=== PATIENT | male | born 1965 | race Caucasian/White ===

== ENCOUNTER 2024-09-02 08:48 | Emergency (ER) | payer BC, SELFPAY ==
[2024-09-02] VITALS (8 sets, daily range): BP systolic 146–178; BP diastolic 84–98; PULSE 72–149; RESP 18–97; TEMP 36.4–36.7; O2SAT 95–98; BMI 42.0
--- NOTE | 2024-09-02 09:25 | XR_ITS ---
Examination: AP chest single view Technique one AP portable upright chest single view Exam date and time: September 02, 2024 0941 hours INDICATIONS: Cardiac palpitations today. FINDINGS: Mild prominence left ventricle No pneumonia or pulmonary edema The osseous structures are intact IMPRESSION: No active disease
--- NOTE | 2024-09-02 09:26 | PD.EDRME ---
Rapid Medical Screening Exam RME Arrival date/time: 09/02/24 08:48 59-year-old male here with complaints of palpitations, dizziness fatigue x 1 morning. I have greeted and performed a focused initial assessment of this patient. Initial appropriate labs ordered at this time. A comprehensive ED assessment and evaluation of the patient and analysis of all test and completion of medical decision making process will be conducted by additional ED provider. Patient in A-fib RVR Chief Complaint: Dizziness Time Seen by Provider: 09/02/24 09:01 Vital signs: Vital Signs Temperature 97.6 F 09/02/24 09:03 Pulse Rate 99 09/02/24 09:03 Respiratory Rate 18 09/02/24 09:03 Blood Pressure 178/92 H 09/02/24 09:03 Pulse Oximetry (%) 96 09/02/24 09:03 Oxygen Delivery Method Room Air 09/02/24 09:03
[2024-09-02 10:17] LABS: Basophils # (Auto) 0.1 Thou/mm3 (0.0-0.2); Basophils % (Auto) 1 % (0-2.5); Eosinophils # (Auto) 0.1 Thou/mm3 (0.0-0.5); Eosinophils % (Auto) 2 % (0-10); Hematocrit 46.1 % (41.0-53.0); Hemoglobin 16.1 g/dL (13.5-16.0); Immature Granulocytes % (Auto) 0 % (0-0); Immature Granulocytes Auto 0.03 Thou/mm3 (0.00-0.00); Lymphocytes # (Auto) 2.7 Thou/mm3 (1.0-4.8); Lymphocytes % (Auto) 40 % (10-50); Mean Corpuscular HGB Conc 34.9 g/dl (31.0-37.0); Mean Corpuscular Hemoglobin 30.8 pg (25.0-35.0); Mean Corpuscular Volume 88 fL (80-100); Monocytes # (Auto) 0.7 Thou/mm3 (0.0-0.8); Monocytes % (Auto) 11 % (0-12); Neutrophils # (Auto) 3.1 Thou/mm3 (1.8-7.7); Neutrophils % (Auto) 46 % (37-80); Nucleated Red Blood Cell % 0 /100 WBC (0); Platelet Count 284 Thou/mm3 (140-440); RDW Standard Deviation 43.2 fL (35.1-43.9); Red Blood Count 5.22 Miln/mm3 (4.50-5.90); White Blood Count 6.8 Thou/mm3 (3.8-10.6)
--- NOTE | 2024-09-02 10:28 | EDNOTE_ITS ---
ED General RME/HPI General Chief complaint: Dizziness Stated complaint: DIZZY, PALPITATIONS, SOB Time Seen by Provider: 09/02/24 09:01 Arrival date/time: 09/02/24 08:48 RME / HPI RME / HPI narrative: 09/02/24 08:48 59-year-old male here with complaints of palpitations, dizziness fatigue x 1 morning. I have greeted and performed a focused initial assessment of this patient. Initial appropriate labs ordered at this time. A comprehensive ED assessment and evaluation of the patient and analysis of all test and completion of medical decision making process will be conducted by additional ED provider. Patient in A-fib RVR DR. MARTINEZ MAIN ED EVALUATION 59 y/o male with H/o carpal tunnel BL and hypertension presents to ED c/o increased heart rate and pressure x 0600 today. Patient reports symptoms resolve after getting up. Patient states he recently moved and has not been established with a PCP. Patient has been previously prescribed LASIX, metoprolol, and Amlodipine 4-5 years when experiencing similar symptoms. Patient states uncle from [place] during his early 60s. Patient admits to occasional marijuana drug use for pain management due to degenerative joint disease of the spine. No other modifying factors reported. No other concerns or complaints expressed at this time. Related Data Previous Rx's ?Medication ?Instructions ?Recorded amlodipine 10 mg tablet 10 mg PO QDAY #20 tabs 09/02 furosemide 20 mg tablet (Lasix) 20 mg PO QAM #20 tabs 09/02/24 metoprolol succinate 50 mg 50 mg PO QDAY #20 tabs 08/24 tablet,extended release 24 hr Allergies Allergy/AdvReac Type Severity Reaction Status Date / Time No Known Allergies Allergy Verified 09/02/24 08:51 Review of Systems Review of Systems Systems Reviewed: All systems reviewed, normal except as documented Narrative Review of Systems: Gen: No fever, no chills, no weight loss EYES: No discharge, no visual changes, no pain HEENT: No ear pain, no congestion, no sore throat PULM: No shortness of breath, no cough, no congestion CV: No chest pain, no dyspnea on exertion, no palpitations, + increased heart rate, Increased blood pressure GI: No nausea, no vomiting, no diarrhea, no pain, no constipation : No frequency, no urgency,? no dysuria Musc/skel: No joint pain, no back pain Skin: No rash? Psyc: No hallucinations, no depression Heme/Lymph: No easy bleeding or bruising tendencies Neuro: No weakness, no headache Past Medical History Past Medical History CARDIAC: Positive Hypertension RESPIRATORY: Negative Chronic Obstructive Pulmonary Disease (COPD) GENITOURINARY: Negative Renal Disease ENDOCRINE: Negative Diabetes Mellitus Type 1 or Diabetes Mellitus Type 2 Social History SMOKING STATUS: Never smoker ED Exam Narrative Physical exam: GEN. APPEARANCE: The patient is alert awake oriented X-3 in no distress, lying down comfortably, does not look ill/toxic. Patient has good eye contact. Patient is cooperative. VITALS: All vitals were reviewed and and are normal according to my interpretation. HEENT: Normocephalic, atraumatic. Pupils are equal and reactive. Oral mucosa is moist. Patent Nares NECK: Supple, nontender, no thyromegaly, no meningismus, no JVD, no step offs CHEST: Symmetrical, atraumatic, and with equal expansion , Nontender on palpation no deformity and no crepitus. CARDIOVASCULAR: + tachycardia, no murmur or gallop rub or extra beats. LUNGS: Clear to auscultation bilaterally with symmetrical chest rise. No laboring tachypnea or wheezing. No intercostal subcostal retraction. No rales and no rhonchi. ABDOMEN: Soft, nontender to palpation, no guarding or rebound tenderness. There are no abnormal masses palpated. Active and normal bowel sounds. + Obese EXTREMITIES: Nontender. + Trace edema to BL lower extremities. No cyanosis. Patient is able to move all 4 extremities well, with full ROM and good CSM. SKIN: Warm and dry, no jaundice or rashes noted. MUSCULOSKELETAL: No lubar or midline bony tenderness. There is no CVA tenderness. No paraspinal muscle spasm or tenderness. NEURO: Patient is FROST x 4, Cranial nerves II through XII grossly intact. There is no focal neurologic deficits noted. GCS is 15, PNS and SHEEP CLIPPER appear grossly intact. PSYCHIATRIC: Patient is in normal mood and affect, cooperative, no SI or HI or hallucinations. Course Quality Measures none Orders Category Date Time Status Cutting Department Supervisor NOW Care 09/02/24 11:23 Active Cutting Department Supervisor STAT Care 09/02/24 09:25 Active Continuous Pulse Oximetry ONCE Care 09/02/24 09:25 Active EKG (ED ONLY) *Do not use* NOW Care 09/02/24 09:25 Completed Insert IV NOW Care 09/02/24 11:24 Active Insert IV STAT Care 09/02/24 09:25 Active EKG (ED Only) Stat Exams 09/02/24 09:25 Ordered XR chest 1V portable Stat Exams 09/02/24 09:25 Completed B-Type Natriuretic Peptide Stat Lab 09/02/24 10:00 Completed CBC Stat Lab 09/02/24 10:00 Completed CBC Stat Lab 09/02/24 11:38 Completed Comprehensive Metabolic Panel Stat Lab 09/02/24 10:00 Completed Lipase Stat Lab 09/02/24 10:00 Completed Magnesium Stat Lab 09/02/24 10:00 Completed Magnesium Stat Lab 09/02/24 11:38 Completed Partial Thromboplastin Time Stat Lab 09/02/24 10:00 Completed Prothrombin Time with INR Stat Lab 09/02/24 10:00 Completed Troponin I Stat Lab 09/02/24 10:00 Completed Troponin I Stat Lab 09/02/24 11:38 Completed Urinalysis Stat Lab 09/02/24 11:30 Completed Diltiazem Inj [Cardizem Inj] Med 09/02/24 11:22 Discontinued 20 mg IV X1 ONE Oxygen Delivery NOW RT 09/02/24 11:24 Active Reevaluation(s) Reevaluation #1: We reviewed all the results, analysis, and treatment plans. Patient is amenable to discharge. Strict return precautions were outlined. Patient was discharged in stable condition. Time: 14:30 Vital Signs Vital signs: Vital Signs Temperature 97.6 F 09/02/24 09:03 Pulse Rate 99 09/02/24 09:03 Respiratory Rate 18 09/02/24 09:03 Blood Pressure 178/92 H 09/02/24 09:03 Pulse Oximetry (%) 96 09/02/24 09:03 Oxygen Delivery Method Room Air 09/02/24 09:03 Pulse ox is 96% on room air which is adequate. [facility] Patient data External records reviewed:: [facility] previous records (No records available per EHR.) Clinical information provided by:: patient Social determinants that could affect healthcare access:: alcohol use (1 6-pack per week) Patient has the following chronic illnesses:: Hypertension How is presenting disease/condition affected by chronic disease/condition?: e xacerbated by Evaluation data The following diagnostics were reviewed and interpreted by me:: radiology exam(s) and EKG tracing(s) (Atrial fibrillation with RVR, rate 155, QT/QTc 288ms/375ms ) Lab and/or radiology exams considered but not ordered:: None Interpretation Summary: Patient: KAT BAUTISTA. Record#: [id number] Birthdate: 1965 Age/Sex: 59 / M [facility] Att[facility]: Ordering Physician: [facility] Date of Service: 09/02/24 Procedure(s): XR chest 1V portable Accession Number(s): [id number] cc: Dannie Cox MD; Yang HaywoodINTER[facility]ENTERConcepción Kimble~ Examination: AP chest single view Technique one AP portable upright chest single view Exam date and time: September 02, 2024 0941 hours INDICATIONS: Cardiac palpitations today. FINDINGS: Mild prominence left ventricle No pneumonia or pulmonary edema The osseous structures are intact IMPRESSION: No active disease Dictated By: Dannie Cox MD Signed By: <Electronically signed by Dannie Cox MD in [place]> 09/02/24 1001 Medications Medications considered but not ordered:: None Medication administrations:: Medication Administration History Discontinued Medications Diltiazem HCl (Diltiazem Inj 5 Mg/Ml Vial 5 Ml) 20 mg IV X1 ONE Stop: 09/02/24 11:23 Last Admin: 09/02/24 11:49 Dose: 20 mg Documented By: EH See above if any. Consultations Consultation(s) initiated? (list below): No Diagnosis Differential Diagnosis ED Complaint MDM: atrial flutter vs atrial tachycardia vs atrial fibrillation Most likely diagnosis given after review of the tests above:: Paroxysmal atrial fibrillation, new onset Admission Indicated Admission indicated?: not indicated Explain why admission is indicated or not indicated:: AFib resolved while in the ED. Does not meed admission criteria Admission Request Was there a request for admission?: No Disposition Plan Disposition Plan: Discharge Discharge Attestation Discharge Attestation: The patient and all family members were given an opportunity to ask questions and understood the discharge instructions. Discharge instructions specifically effects, indications for sooner follow up or return to the emergency department, and the expected course of current diagnosis. Patient condition: Stable Medical Decision Making MDM Narrative MDM Narrative: Ysabel Langford, am scribing for and in the presence of Dr. Vickey Martinez. 59 y/o male with H/o carpal tunnel BL and hypertension presents to ED c/o increased heart rate and pressure x 0600 today. Physical exam findings show tachycardic heart rate, but no murmur, abdomen consistent with obesity, and trace edema of the BL lower extremities. Chest x-ray performed in ED shows mild prominence left ventricle, no pneumonia or pulmonary edema with osseous structures intact. EKG performed in office as interpreted by me shows: AFIB w/ rapid ventricular rate of 155 BPM, QRS 99 ms, QT/QTC 288/375 ms, no acute changes. Differential diagnosis includes but is not limited to: atrial flutter vs atrial tachycardia vs atrial fibrillation. Based on exam findings, testing, and patient's SxS, the diagnosis at this time is consistent with paroxysmal atrial fibrillation new onset. Advised patient to attempt walking 10,000 steps per day. While in the ED, patient was given Diltiazem and atrial fibrillation resolved. Patient was not given Lovenox although was a consideration given hx of atrial fibrillation. Patient reports he has yet to establish a sales and service technician in this area since moving and has not been able to refill his home medications which include Lasix, Amlodipine, and Metropolol. Will send the patient home with a prescription of his home medications and advised he follow up PCP for referral to a sales and service technician. Differential Diagnosis Differential Diagnosis: atrial flutter vs atrial tachycardia vs atrial fibrillation Lab Data 09/02/24 11:38 09/02/24 10:00 Labs: Lab Results 09/02/24 09/02/24 09/02/24 Range/Units 10:00 11:30 11:38 WBC 6.8 7.5 (3.8-10.6) Thou/mm3 RBC 5.22 5.27 (4.50-5.90) Miln/mm3 Hgb 16.1 H 16.3 H (13.5-16.0) g/dL Hct 46.1 46.5 (41.0-53.0) % MCV 88 88 (80-100) fL MCH 30.8 30.9 (25.0-35.0) pg MCHC 34.9 35.1 (31.0-37.0) g/dl RDW Std Deviation 43.2 43.6 (35.1-43.9) fL Plt Count 284 277 (140-440) Thou/mm3 Neut % (Auto) 46 49 (37-80) % Lymph % (Auto) 40 37 (10-50) % Barren % (Auto) 11 11 (0-12) % Eos % (Auto) 2 2 (0-10) % Baso % (Auto) 1 1 (0-2.5) % Neut # (Auto) 3.1 3.7 (1.8-7.7) Thou/mm3 Lymph # (Auto) 2.7 2.8 (1.0-4.8) Thou/mm3 Barren # (Auto) 0.7 0.8 (0.0-0.8) Thou/mm3 Eos # (Auto) 0.1 0.1 (0.0-0.5) Thou/mm3 Baso # (Auto) 0.1 0.1 (0.0-0.2) Thou/mm3 Immature Gran # (Auto) 0.03 H 0.02 H (0.00-0.00) Thou/mm3 Absolute Nucleated RBC 0.00 0.00 (0.00-0.00) Thou/mm3 Immature Gran % 0 0 (0-0) % Nucleated RBC % 0 0 (0) /100 WBC PT 10.7 (9.0-12.2) Seconds INR 1.0 (0.9-1.3) APTT 28.5 (22.0-36.0) Seconds Sodium 140 (136-145) mMol/L Potassium 4.0 (3.4-5.1) mMol/L Chloride 104 (98-107) mMol/L Carbon Dioxide 25.6 (20.0-31.0) mMol/L Anion Gap 10 (7-16) BUN 10 (9-23) mg/dL Creatinine 0.9 (0.6-1.3) mg/dL Estim Creat Clear Calc 131.7 (>60) mL/min eGFR > 60 (60 - ) See Note BUN/Creatinine Ratio 11 L (12-20) Ratio Glucose 125 H (74-106) mg/dL Calculated Osmolality 279 (275-295) Calcium 9.6 (8.3-10.6) mg/dL Corrected Calcium 9.6 (8.5-10.1) mg/dL Magnesium 1.6 1.6 (1.6-2.6) mg/dL Total Bilirubin 0.3 (0.3-1.2) mg/dL AST 54 H (0-34) U/L ALT 56 H (10-49) U/L Alkaline Phosphatase 70 (46-116) U/L Troponin I 0.024 0.022 (0.0-0.045) ng/mL B-Natriuretic Peptide 20 (0-100) pg/mL Total Protein 7.4 (5.7-8.2) gm/dL Albumin 4.7 (3.5-5.0) gm/dL Globulin 2.7 (2.3-3.5) gm/dL Albumin/Globulin Ratio 1.7 (1.2-2.2) Lipase 38 (12-53) U/L Ur Collection Type Clean Catch Urine Color Lt-Yellow (Lt Yel-Yel) Urine Clarity Clear (Clear/Hazy) Urine pH 7.0 (5.0-7.0) Ur Specific [place] 1.007 (1.001-1.035) Urine Protein Trace (Neg - Trace) Urine Glucose (UA) Negative (Negative) Urine Ketones Negative (Negative) Urine Blood Negative (Negative) Urine Nitrite Negative (Negative) Urine Bilirubin Negative (Negative) Urine Urobilinogen (Auto) Negative (0.0-1.0) mg/dL Ur Leukocyte Esterase Negative (Negative) Urine RBC < 1 (0-3) /hpf Urine WBC 1 (0-5) /hpf Ur Squamous Epith Cells 0 (0-5) /hpf Urine Bacteria None (None) Discharge Plan Plan Patient Disposition: HOME (Self Care) Prescriptions/Referrals Prescriptions/Med Rec: New furosemide [Lasix] 20 mg tablet 20 mg PO QAM Qty: 20 0RF amlodipine 10 mg tablet 10 mg PO QDAY Qty: 20 0RF metoprolol succinate 50 mg tablet extended release 24 hr 50 mg PO QDAY Qty: 20 0RF Referrals: No Primary/Family,Physician [Primary Care Provider] - In 1 week Problem List Clinical Impression: Paroxysmal atrial fibrillation, Hypertension Patient/Caregiver Discharge Instructions Education Materials: ED Atrial Fibrillation, ED Hypertension, Established Additional Instructions: Follow up with your sales and service technician for further evaluation and management of atrial fibrillation. Return if you develop any new or worsening symptoms. Continue your home medications: Lasix, Amlodipine, Metropolol. Print Language: Upper Sorbian Stand Alone Forms: Jayne Award Info., Patient Portal Info Letter
[2024-09-02 10:30] LABS: Partial Thromboplastin Time 28.5 Seconds (22.0-36.0); Prothrombin Time 10.7 Seconds (9.0-12.2)
[2024-09-02 10:34] LABS: B-Type Natriuretic Peptide 20 pg/mL (0-100)
[2024-09-02 10:35] LABS: Alanine Aminotransferase 56 U/L (10-49); Albumin, Serum 4.7 gm/dL (3.5-5.0); Albumin/Globulin Ratio 1.7 (1.2-2.2); Alkaline Phosphatase 70 U/L (46-116); Anion Gap 10 (7-16); Aspartate Amino Transferase 54 U/L (0-34); BUN/Creatinine Ratio 11 Ratio (12-20); Bilirubin,Total 0.3 mg/dL (0.3-1.2); Blood Urea Nitrogen 10 mg/dL (9-23); Calcium 9.6 mg/dL (8.3-10.6); Calcium (Corrected) 9.6 mg/dL (8.5-10.1); Carbon Dioxide 25.6 mMol/L (20.0-31.0); Chloride 104 mMol/L (98-107); Creatinine (Component) 0.9 mg/dL (0.6-1.3); Estimated Creatinine Clearance 131.7 mL/min (>60); Globulin 2.7 gm/dL (2.3-3.5); Glucose 125 mg/dL (74-106); Lipase 38 U/L (12-53); Magnesium 1.6 mg/dL (1.6-2.6); Osmolality,Calculated 279 (275-295); Sodium 140 mMol/L (136-145); Total Protein 7.4 gm/dL (5.7-8.2); Troponin I 0.024 ng/mL (0.0-0.045); eGFR > 60 See Note
[2024-09-02 11:37] LABS: Collection Type, Urine Clean Catch; Squamous Epithelial Cell,Urine 0 /hpf (0-5)
[2024-09-02] MEDS: DILTIAZEM INJ 5 MG/ML VIAL 5 ML 20 MG IV (11:49)
[2024-09-02 11:50] LABS: Basophils # (Auto) 0.1 Thou/mm3 (0.0-0.2); Basophils % (Auto) 1 % (0-2.5); Eosinophils # (Auto) 0.1 Thou/mm3 (0.0-0.5); Eosinophils % (Auto) 2 % (0-10); Hematocrit 46.5 % (41.0-53.0); Hemoglobin 16.3 g/dL (13.5-16.0); Immature Granulocytes % (Auto) 0 % (0-0); Immature Granulocytes Auto 0.02 Thou/mm3 (0.00-0.00); Lymphocytes # (Auto) 2.8 Thou/mm3 (1.0-4.8); Lymphocytes % (Auto) 37 % (10-50); Mean Corpuscular HGB Conc 35.1 g/dl (31.0-37.0); Mean Corpuscular Hemoglobin 30.9 pg (25.0-35.0); Mean Corpuscular Volume 88 fL (80-100); Monocytes # (Auto) 0.8 Thou/mm3 (0.0-0.8); Monocytes % (Auto) 11 % (0-12); Neutrophils # (Auto) 3.7 Thou/mm3 (1.8-7.7); Neutrophils % (Auto) 49 % (37-80); Nucleated Red Blood Cell % 0 /100 WBC (0); Platelet Count 277 Thou/mm3 (140-440); RDW Standard Deviation 43.6 fL (35.1-43.9); Red Blood Count 5.27 Miln/mm3 (4.50-5.90); White Blood Count 7.5 Thou/mm3 (3.8-10.6)
[2024-09-02 11:57] LABS: Bilirubin,Urine Negative (Negative); Blood,Urine Negative (Negative); Clarity,Urine Clear (Clear/Hazy); Color,Urine Lt-Yellow (Lt Yel-Yel); Glucose, Urine Negative (Negative); Ketones,Urine Negative (Negative); Leukocyte Esterase,Urine Negative (Negative); Nitrite,Urine Negative (Negative); Protein,Urine Trace (Neg - Trace); RBC,Urine < 1 /hpf (0-3); Specific Gravity,Urine 1.007 (1.001-1.035); Urobilinogen,Urine Negative mg/dL (0.0-1.0); WBC,Urine 1 /hpf (0-5)
[2024-09-02 12:10] LABS: Magnesium 1.6 mg/dL (1.6-2.6); Troponin I 0.022 ng/mL (0.0-0.045)
== END 2024-09-02 16:15 | disposition home or self-care (01) ==
PROVIDERS: Nurse Practitioner Primary Care; Emergency Provider Family Medicine
DX: I48.0 Paroxysmal atrial fibrillation (principal); I10 Essential (primary) hypertension
CPT/HCPCS: 36415; 71045; 80053; 81001; 83690; 83735; 83880; 84484; 85025; 85610; 85730; 93005; 99284; J3490